=== PATIENT | male | born 1960 | race Caucasian/White ===

== ENCOUNTER → 2016-11-25 | Outpatient (REF) | payer BC ==
[2016-11-25 11:39] LABS: MEAN CORPUSCULAR HEMOGLOBIN 29.6 pg (27.0-33.0); MEAN CORPUSCULAR VOLUME 89.8 fl (80.0-96.0); RED CELL DISTRIBUTION WIDTH 12.2 % (11.5-14.5); WHITE BLOOD COUNT 6.2 K/mm3 (4.0-10.0)
[2016-11-25 12:11] LABS: ALBUMIN 3.7 GM/DL (3.2-5.2); ALBUMIN/GLOBULIN RATIO 1.16 (1.00-1.93); ALKALINE PHOSPHATASE 82 U/L (45-117); ALT/SGPT 24 U/L (12-78); ANION GAP 8 MEQ/L (8-16); AST/SGOT 12 U/L (15-37); BILIRUBIN,TOTAL 0.4 MG/DL (0.2-1.0); BLOOD UREA NITROGEN 27 MG/DL (7-18); CALCIUM LEVEL 8.9 MG/DL (8.5-10.1); CARBON DIOXIDE LEVEL 27 MEQ/L (21-32); CHLORIDE LEVEL 108 MEQ/L (98-107); CHOLESTEROL LEVEL 235 MG/DL (<200); CREATININE FOR GFR 1.07 MG/DL (0.70-1.30); GLOMERULAR FILTRATION RATE > 60.0 (>56); GLUCOSE, FASTING 93 MG/DL (70-105); POTASSIUM SERUM 4.7 MEQ/L (3.5-5.1); SODIUM LEVEL 143 MEQ/L (136-145); TOTAL PROTEIN 6.9 GM/DL (6.4-8.2); TRIGLYCERIDES LEVEL 160 MG/DL (<150)
== END ==
LOC: M SFHCCLAY 07:18
PROVIDERS: ATTEND Nurse Practitioner
DX: Z00.00 Encounter for general adult medical examination without abnormal findings (principal); E78.5 Hyperlipidemia, unspecified; N40.0 Benign prostatic hyperplasia without lower urinary tract symptoms; E03.9 Hypothyroidism, unspecified

== ENCOUNTER 2017-05-01 07:20 | Outpatient (CLI) | payer BC, OTHER ==
[~2017-05-01] VITALS: Ht 182.9 cm; Wt 120.2 kg
[~2017-05-01 07:20] MED LIST: FLOM5CAP PO; LIDOCAINE 2% INJ 100 MG/5 ML SDV (FOR ANES.) As Ordered ONE; NS 1,000 ML IV SCH; PRAV20TA2 PO; PROPOFOL 200 MG/20 ML VIAL As Ordered ONE
--- NOTE | 2017-05-01 08:30 | ROOR ---
Patient Name: Krish Mittal Procedure Date: 05/01/2017 7:57 AM Date of : 1960 Age: 56 Room: [facility] Gender: Male Note Status: Finalized Procedure: Total Colonoscopy to Cecum + Cold Snare Polypectomy + Biopsy Polypectomy Indications: Colon cancer screening in patient at increased risk: Colorectal cancer in brother Providers: Minh Melendez MD Referring MD: PRISCILA SILVA NP Requesting Provider: Medicines: Monitored Anesthesia Care Complications: No immediate complications. Procedure: Pre-Anesthesia Assessment: - The heart rate, respiratory rate, oxygen saturations, blood pressure, adequacy of pulmonary ventilation, and response to care were monitored throughout the procedure. The Colonoscope was introduced through the anus and advanced to the cecum, identified by appendiceal orifice and ileocecal valve. The colonoscopy was performed without difficulty. The patient tolerated the procedure well. The quality of the bowel preparation was good. Findings: The perianal and digital rectal examinations were normal. Non-bleeding internal hemorrhoids were found during retroflexion. The hemorrhoids were small and Grade I (internal hemorrhoids that do not prolapse). A small polyp was found at 25 cm proximal to the anus. The polyp was sessile. The polyp was removed with a cold snare. Resection and retrieval were complete. A small polyp was found in the cecum. The polyp was carpet-like. The polyp was removed with a cold biopsy forceps. Resection and retrieval were complete. A small polyp was found in the hepatic flexure. The polyp was sessile. The polyp was removed with a jumbo cold forceps. Resection and retrieval were complete. The exam was otherwise without abnormality on direct and retroflexion views. Impression: - Non-bleeding internal hemorrhoids. - One small polyp at 25 cm proximal to the anus, removed with a cold snare. Resected and retrieved. - One small polyp in the cecum, removed with a cold biopsy forceps. Resected and retrieved. - One small polyp at the hepatic flexure, removed with a jumbo cold forceps. Resected and retrieved. - The examination was otherwise normal on direct and retroflexion views. - The exam was otherwise normal to the cecum. Recommendation: - Patient has a contact number available for emergencies. The signs and symptoms of potential delayed complications were discussed with the patient. Return to normal activities tomorrow. Written discharge instructions were provided to the patient. - High fiber diet. - Discharge patient to home. - Continue present medications. - Await pathology results. - Telephone GI clinic for pathology results in 1 week. - Repeat colonoscopy for surveillance based on pathology results. - Return to referring physician. - Check Portal Online for Path Results.([email or web address] - The findings and recommendations were discussed with the patient's family. Minh Melendez MD Minh Melendez MD 05/01/2017 8:30:00 AM This report has been signed electronically. Number of Addenda: 0 Note Initiated On: 05/01/2017 7:57 AM Estimated Blood Loss: Estimated blood loss: none.
[2017-05-01 09:04] VITALS: BP 126/73
== END 2017-05-01 09:20 | disposition home or self-care (01) ==
LOC: M OPP 07:20
PROVIDERS: ATTEND Internal Medicine Gastroenterology
DX: Z12.11 Encounter for screening for malignant neoplasm of colon (principal); Z80.0 Family history of malignant neoplasm of digestive organs; K64.0 First degree hemorrhoids; D12.0 Benign neoplasm of cecum; D12.5 Benign neoplasm of sigmoid colon; D12.3 Benign neoplasm of transverse colon; E78.00 Pure hypercholesterolemia, unspecified; R06.83 Snoring; Z79.899 Other long term (current) drug therapy

== ENCOUNTER → 2017-05-29 | Outpatient (CLI) | payer OTHER ==
[~2017-05-29] MED LIST changes: -LIDOCAINE 2% INJ 100 MG/5 ML SDV (FOR ANES.) As Ordered ONE; -NS 1,000 ML IV SCH; -PROPOFOL 200 MG/20 ML VIAL As Ordered ONE
[2017-05-29 12:19] LABS: BASO # 0.1 K/mm3 (0.0-0.2); BASO % 0.5 % (0.0-1.0); EOS # 0.2 K/mm3 (0.0-0.50); LARGE UNSTAINED CELL # 0.2 K/mm3 (0.0-0.4); LARGE UNSTAINED CELL % 1.5 % (0.0-4.0); LYMPH # 2.1 K/mm3 (1.5-4.5); LYMPH % 15.7 % (24.0-44.0); MEAN CORPUSCULAR HEMOGLOBIN 30.2 pg (27.0-33.0); MEAN CORPUSCULAR HGB CONC 33.4 g/dl (32.0-36.5); MEAN CORPUSCULAR VOLUME 90.2 fl (80.0-96.0); NEUTROPHILS # 8.9 K/mm3 (1.8-7.7); NEUTROPHILS % 72.3 % (36.0-66.0); PLATELET COUNT, AUTOMATED 354 k/mm3 (150-450); RED CELL DISTRIBUTION WIDTH 12.5 % (11.5-14.5); WHITE BLOOD COUNT 12.3 K/mm3 (4.0-10.0)
== END ==
LOC: M WUC 10:39
PROVIDERS: ATTEND Physician Assistant
DX: K57.20 Diverticulitis of large intestine with perforation and abscess without bleeding (principal)

== ENCOUNTER 2017-09-07 11:53 | Observation (INO) | payer OTHER ==
[~2017-09-07] VITALS: Ht 185.4 cm; Wt 117.9 kg
--- NOTE | 2017-09-07 13:30 | REP ---
CT brain without contrast: History: Altered mental status. No comparison CT study. Findings: Bone window settings demonstrate vascular calcification in the distal carotid arteries. The bony calvarium is intact. There is mild mucosal thickening affecting the sphenoid and ethmoid air cells bilaterally. On soft tissue window settings, the lateral, third, and fourth ventricles are normal in size and position. Montoya-white differentiation pattern is normal above and below the tentorium. There is no evidence of intracranial hemorrhage. No extra-axial fluid collection is seen. No mass or midline shift is observed. Impression: Vascular calcification. Mucosal thickening in the sphenoid and ethmoid sinuses bilaterally. Otherwise negative noncontrast head CT. No acute intracranial lesion. Signed by Zackary Ayers MD 09/07/2017 02:24 P
[2017-09-07 14:01] LABS: BASO # 0.1 10^3/uL (0.0-0.2); BASO % 0.6 % (0.0-1.0); EOS # 0.2 10^3/uL (0.0-0.50); EOS % 1.8 % (0.0-3.0); IMMATURE GRANULOCYTE % 0.4 % (0-0); LYMPH % 18.5 % (24.0-44.0); MEAN CORPUSCULAR HEMOGLOBIN 29.4 pg (27.0-33.0); MEAN CORPUSCULAR HGB CONC 32.9 g/dl (32.0-36.5); MEAN CORPUSCULAR VOLUME 89.1 fl (80.0-96.0); MONO # 0.9 10^3/uL (0.0-0.8); MONO % 8.4 % (0.0-5.0); NEUTROPHILS # 7.4 10^3/uL (1.8-7.7); NEUTROPHILS % 70.3 % (36.0-66.0); PLATELET COUNT, AUTOMATED 370 10^3/uL (150-450); RED CELL DISTRIBUTION WIDTH 12.9 % (11.5-14.5); WHITE BLOOD COUNT 10.5 10^3/uL (4.0-10.0)
[2017-09-07 14:13] LABS: OSMOLALITY SERUM 296 MOSM/KG (275-295)
[2017-09-07 14:19] LABS: METHADONE URINE NEGATIVE (NEGATIVE)
[2017-09-07 14:25] LABS: ALBUMIN 3.8 GM/DL (3.2-5.2); ALBUMIN/GLOBULIN RATIO 0.88 (1.00-1.93); ALKALINE PHOSPHATASE 99 U/L (45-117); ALT/SGPT 20 U/L (12-78); ANION GAP 7 MEQ/L (8-16); AST/SGOT 10 U/L (7-37); BILIRUBIN,DIRECT < 0.1 MG/DL (0.0-0.2); BILIRUBIN,TOTAL 0.2 MG/DL (0.2-1.0); BLOOD UREA NITROGEN 21 MG/DL (7-18); CALCIUM LEVEL 9.1 MG/DL (8.5-10.1); CARBON DIOXIDE LEVEL 28 MEQ/L (21-32); CHLORIDE LEVEL 105 MEQ/L (98-107); CREATININE FOR GFR 1.12 MG/DL (0.70-1.30); GLOMERULAR FILTRATION RATE > 60.0 (>56); GLUCOSE, FASTING 95 MG/DL (70-105); POTASSIUM SERUM 4.4 MEQ/L (3.5-5.1); SODIUM LEVEL 140 MEQ/L (136-145); TOTAL PROTEIN 8.1 GM/DL (6.4-8.2)
[2017-09-07] MEDS ORDERED: ONDANSETRON 4MG/2ML VIAL (J2405) IV PRN (18:45)
[2017-09-07] MEDS ORDERED: BISACODYL 5 MG TAB PO PRN (18:45)
[2017-09-07] MEDS ORDERED: ACETAMINOPHEN TAB 650MG DOSE (2X325MG) PO PRN (18:45)
--- NOTE | 2017-09-07 19:00 | REPUSA ---
HISTORY: ALTERED MENTAL STATUS. Confusion. TECHNIQUE: Multisequence, multiplanar MRI imaging of brain without contrast. FINDINGS: Ventricles and sulci are of normal size for this age group. Montoya-white matter differentiati on is intact. There is no evidence of intracranial mass, mass effect, hemorrhage, infarct, or abnorma l cystic fluid collection seen. Optic chiasm is normal and pituitary gland is normal. Noncontrast dorene earance of the [place] vessels appears normal. Skull base appears normal and no CPA angle ma ss lesions are seen. Orbits and paranasal sinuses appear normal. IMPRESSION: Negative noncontrast MRI of brain.
[2017-09-07] MEDS ORDERED: ZANTTAB PO (19:05)
--- NOTE | 2017-09-07 19:10 | REPUSA ---
HISTORY: ALTERED MENTAL STATUS. Confusion. TECHNIQUE: 3-D [id number] MRA imaging of brain. FINDINGS: The examination demonstrates normal flow and patency of the right and left intracranial int ernal carotid arteries, anterior cerebral arteries, middle cerebral arteries, intracranial vertebral arteries, basilar artery, posterior cerebral arteries, and [place] arteries, with no detecta ble evidence of aneurysm, stenosis, vasculitis, or arterial venous malformation. There is a normal v ariation of a right posterior communicating artery supplying the right posterior cerebral artery. IMPRESSION: Negative MRA of brain as discussed above.
[2017-09-07] MEDS ORDERED: amLODIPine 5 MG TAB PO ONE (19:45)
--- NOTE | 2017-09-07 20:12 | ECGEPIP ---
Stationary ECG Study [facility] - ED Test Date: 2017-09-07 Pat Name: ANNETTE GUTIERREZ Department: Room: - Gender: M [employer] Operator: brandon : 1960 Requested By: Alannah Waite Order Number: [id number] Reading MD: Adonis Slaughter Measurements Intervals [place] Rate: 75 P: 27 SC: 175 QRS: -14 QRSD: 101 T: 16 QT: 389 QTc: 435 Interpretive Statements SINUS RHYTHM NSTTW ABNORMALITIES SIMILAR TO 09/11/16 Electronically Signed On 09-07-2017 20:12:31 EST by Adonis Slaughter
--- NOTE | 2017-09-07 20:13 | HPE ---
DATE OF ADMISSION: 09/07/2017 Patient had previously been seen by Lesley Levy, and he complained of confusion, disorientation. HISTORY OF PRESENT ILLNESS: This is a 57-year-old male with past medical history significant for hypothyroidism, benign prostatic hypertrophy (BPH), hypertension , hyperlipidemia, diverticulosis. Presents to the emergency room with acute onset of confusion, noticed by the at 10 a.m. this morning. Patient mis-sat in a chair and then felt lightheaded. He could not recall who the president was. When the patient's asked him what his blood pressure was, he could not recall that he went to the doctor's office to get his blood pressure checked a few days ago, and he did not remember that he did blood work done at that time. He did not know the president and could answer. Denied any chest pain, pressure, tightness, palpitations. Patient complained of feeling very tired and fatigued and is currently being worked up for obstructive sleep apnea. He has been having occasional headaches in the mornings. He has been very fatigued for the past 2-3 months but denies any fever, c hills, weight gain, weight loss, changes in appetite, nausea, vomiting, diarrhea, abdominal pain, dysuria, urgency, frequency, upper or lower extremity weakness. Patient's did not note any dysarthria. Patient was found to have resolved his symptoms within 2 hours of emergency room (ER) evaluation. Patient's did call Dr. Alejandro's office. They asked whether his face was symmetric, and it was. His tongue was midline. His strength was intact. Glucose level in the ER was 95. Blood work was normal. Systolic pressure when he came in was 160/82. MRI/MRA of the brain are within normal limits. Hospitalist service was asked to admit for transient ischemic attack (TIA). PAST MEDICAL HISTORY: 1. Hypothyroidism. 2. BPH. 3. Hyperlipidemia. 4. Diverticulosis. ALLERGIES: No known drug allergies. PAST SURGICAL HISTORY: Vasectomy. SOCIAL HISTORY: with four children. Works in [employer]. Has his own company. Denies any alcohol, cigarettes, or recreational drug use. FAMILY HISTORY: Father with prostate cancer, pacemaker, diabetes. Mother with cerebrovascular accident (CVA), hypertension. Brother with colon cancer. Sister with three TIAs, diabetes. REVIEW OF SYSTEMS: Per history of present illness (HPI). A 12-point system otherwise negative. LABORATORY DATA: White count 10.5, hemoglobin 14, hematocrit 43, platelet count 370. Neutrophils 80%. Sodium 140, potassium 4.4, chloride 105, bicarbonate 28, BUN 21, creatinine 1.1, glucose 95. Osmolality 296. Calcium 9.1. Total bilirubin 0.2, direct bilirubin less than 0.1. AST 10, ALT 20, alkaline phosphatase 99. Ammonia less than 10. Total CK 92, MB fraction 1, troponin 0.03. Total protein 8.1. TSH 3.5. Urine toxicology screen is negative. MRI of the brain negative. Noncontrast MRI. MRA of the brain: Negative MRA. ASSESSMENT AND PLAN: This is a 57-year-old male with a history of hypertension, hyperlipidemia, nonsmoker, diverticulitis with diverticulosis, benign prostatic hypertrophy (BPH), who presents to the emergency room with acute onset of confusion, disorientation, unable to say who the president was, and did not recall what happened about a week ago. Complained of lightheadedness with normal MRI/MRI, normal EKG, sinus rhythm, ventricular rate of 75. Patient is admitted for transient ischemic attack (TIA) and will be admitted for observation and assigned to Dr. Rony Tran. CURRENT ISSUES: 1. Transient ischemic attack. Patient had confusion and disorientation that lasted 2 hours. Currently on aspirin 81 mg daily. MRI/MRA of the brain are negative. Will admit the patient to telemetry, monitor for 24 hours, then discharge home in the morning. Check fasting lipid profile. 2. Hypertension. Uncontrolled with complaints of headache. Current pressure is 150 and 160 on arrival to the ER. Patient will be given one dose of Norvasc. 3. BPH. Continue on Flomax. 4. Dyslipidemia. Check lipid profile in the morning. Start on statin if LDL is elevated. 5. Deep vein thrombosis (DVT) prophylaxis with subcutaneous Lovenox. DISPOSITION: Patient will be assigned to Dr. Rony Tran at 7 p.m. on 09/07/2017 and may be discharged home in the morning if no issues overnight. [facility]
[2017-09-07] MEDS ORDERED: TAMSULOSIN 0.4 MG CAP PO SCH (21:00)
[2017-09-07] MEDS: raNITIdine SYRUP 150 MG/10 ML UDC PO SCH (21:30)
[2017-09-08 00:43] VITALS: BP 145/79
[2017-09-08 04:13] VITALS: BP 101/58
[2017-09-08 06:54] LABS: BASO # 0.1 10^3/uL (0.0-0.2); BASO % 0.9 % (0.0-1.0); EOS # 0.2 10^3/uL (0.0-0.50); EOS % 3.2 % (0.0-3.0); IMMATURE GRANULOCYTE % 0.1 % (0-0); LYMPH # 2.3 10^3/uL (1.5-4.5); LYMPH % 30.5 % (24.0-44.0); MEAN CORPUSCULAR HEMOGLOBIN 28.8 pg (27.0-33.0); MEAN CORPUSCULAR HGB CONC 32.9 g/dl (32.0-36.5); MEAN CORPUSCULAR VOLUME 87.6 fl (80.0-96.0); MONO # 0.8 10^3/uL (0.0-0.8); MONO % 10.2 % (0.0-5.0); NEUTROPHILS # 4.1 10^3/uL (1.8-7.7); NEUTROPHILS % 55.1 % (36.0-66.0); PLATELET COUNT, AUTOMATED 310 10^3/uL (150-450); WHITE BLOOD COUNT 7.4 10^3/uL (4.0-10.0)
[2017-09-08 07:26] LABS: ANION GAP 8 MEQ/L (8-16); BLOOD UREA NITROGEN 20 MG/DL (7-18); CALCIUM LEVEL 8.8 MG/DL (8.5-10.1); CARBON DIOXIDE LEVEL 25 MEQ/L (21-32); CHLORIDE LEVEL 106 MEQ/L (98-107); CHOLESTEROL LEVEL 211 MG/DL (<200); CREATININE FOR GFR 1.09 MG/DL (0.70-1.30); GLOMERULAR FILTRATION RATE > 60.0 (>56); GLUCOSE, FASTING 100 MG/DL (70-105); POTASSIUM SERUM 4.1 MEQ/L (3.5-5.1); SODIUM LEVEL 139 MEQ/L (136-145); TRIGLYCERIDES LEVEL 170 MG/DL (<150)
[2017-09-08 08:00] VITALS: BP 115/66
[2017-09-08] MEDS ORDERED: ENOXAPARIN 40 MG/0.4 ML SYRINGE (J1650) SC SCH (09:00)
[2017-09-08] MEDS ORDERED: ASPIRIN 81 MG CHEW TABLET PO SCH (09:00)
[2017-09-08] MEDS: raNITIdine SYRUP 150 MG/10 ML UDC PO SCH ×2 (09:00→09:56)
[2017-09-08] MEDS ORDERED: SIMV40TA2 PO (09:49)
[2017-09-08] MEDS ORDERED: ASPI81TA PO (09:49)
--- NOTE | 2017-09-09 15:49 | DSES ---
DATE OF ADMISSION: 09/07/2017 DATE OF DISCHARGE: 09/08/2017 DISCHARGE DIAGNOSIS: Possible transient ischemic attack (TIA). SECONDARY DIAGNOSES: 1. Possible atypical migraines. 2. BPH. 3. Dyslipidemia. 4. Diverticulosis. HOSPITAL COURSE: The patient is a 57-year-old man who presented to the emergency room with an onset of confusion at 10 a.m., he mis-sat in a chair, felt lightheaded, had a little bit of a headache, could not remember who the president was, could not remember being in the doctor's office recently, and as he was confused. His did call Dr. Alejandro's office, who suggested that he present to the emergency room for evaluation. He was mildly hypertensive, which did quickly resolve with medication. He normally only takes Flomax and ranitidine at home. A CT scan was completed of his brain and did not reveal any etiology that was concerning for a TIA and, as such, he did have an MRI and MRA of the brain as well, which did not reveal any concerning findings and no acute CVAs. His symptoms did resolve completely within 2 hours. SUBJECTIVE: This morning, the patient tells me that he feels well and has no complaints and is at his baseline functioning. OBJECTIVE: VITAL SIGNS: Temperature 97.3, pulse 86, respiratory rate 18, blood pressure 115/66, oxygen saturation 100% on room air. GENERAL: He is a pleasant man laying in a stretcher at a 30 degree angle, he does not appear to be in any acute distress. HEENT: Cranial nerves II-XII are grossly intact. He has moist mucous membranes. Face is symmetric. Tongue is midline. CARDIOVASCULAR EXAM: S1, S2, regular. RESPIRATORY EXAM: Clear. ABDOMINAL EXAM: Obese. Bowel sounds are present. The abdomen is soft. EXTREMITIES: No clubbing, cyanosis, or edema. No rash. LABORATORY STUDIES: WBC 7.4, hemoglobin 13.9, platelet count 310. Chemistry panel: Sodium 134, potassium 4.1, chloride 106, bicarbonate 25, BUN 20, creatinine 1.0, hemoglobin A1c of 6.0, TSH within normal limits. LDL is elevated at 142, HDL is low at 35. Urine toxicology is negative. The Lyme screen and titer is pending. IMAGING: As outlined above. ASSESSMENT AND PLAN: This is a 57-year-old male who presented with slight headache and some intermittent confusion with difficulty in coordination that was self-limited and resolved. 1. Possible transient ischemic attack (TIA) versus atypical migraine. The patient's symptoms have completely subsided. He has no further headache. He has been started on a baby aspirin and simvastatin, which are new medications for him. I have recommended that he have an outpatient referral to neurology for further evaluation. We have advised him no driving until followup and that he should followup with his primary care provider (PCP) within 7 days and he should return to the emergency room (ER) if his symptoms worsen or recur. I did discuss starting anti-hypertensive medication with him, however, he tells me that he has a sphygmomanometer at home and he checks his blood pressure daily and he is rarely above 120 and usually in 110s, and he was previously on antihypertensive medication, lisinopril, but became hypotensive with this, and as such, he was hesitant and resistant to starting any new medications. His blood pressure this morning is satisfactory and he is comfortable without any symptoms. 2. BPH. He is on Flomax. 3. Dyslipidemia. He has been started on a statin. 4. Deep vein thrombosis (DVT) prophylaxis. He was on Lovenox while here. 5. Gastroesophageal reflux disease. He is on ranitidine. DISPOSITION: The patient is being discharged home to the care of his family. He is independent of his activities of daily living at his functional baseline. His clinical syndrome has resolved. His activity is no driving until followup. His diet is 2 gram sodium. He is to return to the emergency room (ER) if his symptoms worsen. He is to followup with the Lyme screen with his primary care provider (PCP). MEDICATIONS: At the time of discharge: - aspirin 81 mg daily - simvastatin 40 mg daily - ranitidine 150 mg every evening - Flomax 0.8 mg nightly Greater than 30 minutes spent organizing safe disposition.
[2017-09-10 00:06] LABS: Lyme Disease IgG/IgM Antibodie <0.91 ISR (0.00-0.90); Lyme Disease IgM Ab Quantitati <0.80 index (0.00-0.79)
== END 2017-09-08 11:00 | disposition home or self-care (01) ==
LOC: M ED 11:53 → M ED INP 18:45
PROVIDERS: ADMIT General Practice; ATTEND Internal Medicine
DX: R41.0 Disorientation, unspecified (principal); R42 Dizziness and giddiness; R51 Headache; R03.0 Elevated blood-pressure reading, without diagnosis of hypertension; R53.83 Other fatigue; N40.0 Benign prostatic hyperplasia without lower urinary tract symptoms; E78.5 Hyperlipidemia, unspecified; K57.90 Diverticulosis of intestine, part unspecified, without perforation or abscess without bleeding; K21.9 Gastro-esophageal reflux disease without esophagitis; E03.9 Hypothyroidism, unspecified; Z79.899 Other long term (current) drug therapy; Z79.82 Long term (current) use of aspirin; Z82.3 Family history of stroke
CPT/HCPCS: 36415; 70450; 70544; 70551; 80048; 80061; 80076; 80307; 82140; 82550; 82553; 83036; 83930; 84443; 85025; 86617; 93005; 93041; 94760; 96372; 99285; G0480; J1650

== ENCOUNTER 2017-09-13 17:30 | Inpatient (IN) | payer OTHER ==
[~2017-09-13] VITALS: Ht 185.4 cm; Wt 120.5 kg
[~2017-09-13 17:30] MED LIST changes: +ASPI81TA PO; +SIMV40TA2 PO; +ZANTTAB PO
[2017-09-13] MEDS ORDERED: PERCOCET 5MG/325MG TAB PO ONE (18:30)
[2017-09-13] MEDS ORDERED: MORPHINE 10 MG/ML 1ML VIAL IM ONE (19:45)
--- NOTE | 2017-09-13 21:00 | REPUSA ---
CLINICAL HISTORY: FELL ? ACETABULAR FX TECHNIQUE: Multiple axial CT images were obtained without IV contrast material. MPR coronal and sagit karina sequences are obtained. COMMENTS: Note is made of severely comminuted nondisplaced fracture of the bony acetabulum There is no evidence of additional fracture or dislocation. The femoral head is intact. There are n o lytic or blastic lesions. No soft tissue masses or fluid collections are present. There is no evidence of arthritis. Joint spaces are preserved. IMPRESSION: Severely comminuted nondisplaced fracture of the bony acetabulum Thank you for your kind referral of this patient.
[2017-09-13] MEDS ORDERED: ASPI81CH PO (22:36)
[2017-09-13] MEDS ORDERED: SIMV40TA2 PO (22:36)
[2017-09-13] MEDS ORDERED: NAPR1TAB41 PO (22:36)
[2017-09-14] VITALS (10 sets, daily range): BP systolic 123–172; BP diastolic 73–91
[2017-09-14] MEDS: D5W/LR 1,000 ML IV SCH ×3 (01:54→20:59)
[2017-09-14] MEDS: MORPHINE 2 MG/ML 1ML SYRINGE IV PRN ×2 (01:55→07:55)
[2017-09-14] MEDS ORDERED: PERCOCET 5MG/325MG TAB PO PRN (02:00)
[2017-09-14] MEDS: PERCOCET 5MG/325MG TAB PO PRN ×5 (02:50→22:12)
--- NOTE | 2017-09-14 07:39 | REP ---
REASON: Pain after trauma. FINDINGS: The compartments are symmetric and relatively well maintained. There is no acute fracture or destructive osseous lesion. Signed by Jaron Card DO 09/15/2017 01:52 P
--- NOTE | 2017-09-14 07:40 | REP ---
REASON: Pain after trauma. TWO VIEWS OF THE RIGHT FEMUR: FINDINGS: No acute fracture or destructive osseous lesion. Signed by Jaron Card DO 09/15/2017 01:52 P
--- NOTE | 2017-09-14 07:45 | REP ---
REASON: Pain after trauma. AP pelvis shows a subtle lucency in the right ischium which appears to be extending from the medial most aspect of the posterior acetabulum into the acetabular rim. This is very difficult to evaluate on a plain AP radiograph of the pelvis. Right hip series is recommended. IMPRESSION: Possible right ischial fracture. AP and frog lateral views of the right hip were obtained and show a right ischial fracture involving the base of the superior pubic ramus extending into the posterior acetabular region. The femur is not fractured and there is no hip dislocation. IMPRESSION: Right hemipelvic fracture into and including the posterior acetabulum as described above. Signed by Jaron Card DO 09/15/2017 01:52 P
[2017-09-14] MEDS: MOM 30ML SUSPENSION UDC PO SCH (07:53)
[2017-09-14] MEDS: ENOXAPARIN 40 MG/0.4 ML SYRINGE (J1650) SC SCH (07:54)
[2017-09-14] MEDS: SENOKOT S TAB PO SCH ×2 (10:20→20:51)
[2017-09-14] MEDS: MIRALAX *UNIT DOSE* 17GM PACKET PO SCH (10:20)
--- NOTE | 2017-09-14 14:41 | REP ---
CERVICAL SPINE SERIES: SEVEN VIEWS. HISTORY: Question fracture. FINDINGS: Lateral views done in flexion and extension show limitation of flexion/extension range of motion. No fracture or subluxation is seen. The C7-T1 disc space is not seen on lateral radiographs. Swimmers lateral view does show C7-T1, however. AP, open-mouth odontoid views are unremarkable. Oblique images demonstrate normally aligned facets. There is left-sided uncovertebral spurring mild in degree at the C 5-6 level. Degenerative disc changes are seen at C4-5 and C5-6. IMPRESSION: Straightening and degenerative spondylosis. Limitation of flexion/extension range of motion. No traumatic abnormality is noted. CT scanning is more sensitive for fracture in the cervical spine. Signed by Zackary Ayers MD 09/14/2017 04:00 P
--- NOTE | 2017-09-14 14:42 | REP ---
THORACIC SPINE SERIES: FOUR VIEWS. HISTORY: Question fracture. FINDINGS: Thoracic vertebral body heights are preserved. Alignment is normal. There is discogenic spurring at several mid and lower thoracic levels. Pedicles and posterior elements are intact. No paravertebral soft-tissue mass or hematoma is seen. There is a minimal levoconvex curve in the upper thoracic spine. IMPRESSION: Degenerative disc changes and mild levoconvex curvature. No fracture or other traumatic abnormality seen. Signed by Zackary Ayers MD 09/14/2017 04:01 P
--- NOTE | 2017-09-14 14:42 | REP ---
LUMBAR SPINE SERIES: FIVE VIEWS. HISTORY: Question fracture. COMPARISON STUDY: April 06, 2007 FINDINGS: Lumbar vertebral body heights are maintained. No fracture or collapse is seen. No malalignment noted. Minimal discogenic spurring is seen at C3-4. Pedicles and posterior elements are intact. Psoas margins are symmetric. Sacrum and SI joints are unremarkable. IMPRESSION: No traumatic abnormality noted. Mild degenerative disc changes at L3-4. Signed by Zackary Ayers MD 09/14/2017 04:00 P
[2017-09-15] MEDS: MORPHINE 2 MG/ML 1ML SYRINGE IV PRN (03:31)
[2017-09-15] MEDS: PERCOCET 5MG/325MG TAB PO PRN ×5 (04:01→22:01)
[2017-09-15 06:00] VITALS: BP 129/78
[2017-09-15] MEDS: MOM 30ML SUSPENSION UDC PO SCH (09:01)
[2017-09-15] MEDS: MIRALAX *UNIT DOSE* 17GM PACKET PO SCH (09:01)
[2017-09-15] MEDS: ENOXAPARIN 40 MG/0.4 ML SYRINGE (J1650) SC SCH (09:02)
[2017-09-15] MEDS: SENOKOT S TAB PO SCH ×2 (09:02→22:01)
[2017-09-15 14:00] VITALS: BP 164/75
[2017-09-15 22:00] VITALS: BP 129/73
[2017-09-16 06:00] VITALS: BP 132/74
[2017-09-16] MEDS ORDERED: PERC5TAB12 PO (07:13)
[2017-09-16] MEDS: MOM 30ML SUSPENSION UDC PO SCH (08:08)
[2017-09-16] MEDS: SENOKOT S TAB PO SCH (08:09)
[2017-09-16] MEDS: MIRALAX *UNIT DOSE* 17GM PACKET PO SCH (08:09)
[2017-09-16] MEDS: ENOXAPARIN 40 MG/0.4 ML SYRINGE (J1650) SC SCH (08:09)
[2017-09-16] MEDS: PERCOCET 5MG/325MG TAB PO PRN (08:10)
[2017-09-16] MEDS ORDERED: traMADol 50 MG TAB PO PRN ×2 (11:45)
[2017-09-16 14:00] VITALS: BP 135/82
--- NOTE | 2017-09-17 13:21 | CR ---
DATE OF CONSULTATION: 09/15/2017 CHIEF COMPLAINT: Right hip pain. HISTORY OF PRESENT ILLNESS: He injured himself on 09/14/2017. He was on a piece of equipment, up about 5 feet. He was moving a component of the equipment that weighed approximately 100 pounds. He slipped, and he landed on his side, and the 100-pound piece of equipment went with him. He had significant pain in the right hip and was not able to effectively ambulate, but he did manage to get to his car and transport himself. 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 He is not complaining of numbness or tingling. He did complain of some back pain. Complains of pain in the groin. Complains of pain with any type of weightbearing activities. Pain is little when he is not really moving around and laying in bed. IMAGING: Included a CT scan, which reflects a nondisplaced but intraarticular comminuted acetabular fracture. CT scan was reviewed. I agree there appears to be no significant displacement. I do not appreciate any widening at the SI joint. The patient has no known allergies. MEDICAL HISTORY: Does have a history of possible transient ischemia attack and has been talking to his primary provider about working that up. He has a history reflux issues, hypercholesterolemia, and urinary retention on Flomax. The medications at home include Flomax, ranitidine, aspirin 81 mg, simvastatin, Naprosyn. The primary provider is Dr. Martínez Alejandro. CLINICAL EXAMINATION: Alert and cooperative. Mood and affect appropriate. He does not appear to be comfortable. There is no abdominal distention. Extremities: Movement of the right lower extremity produced discomfort around the groin and buttock region of the right side. Neurologically intact. No effusion at the knees. No open wounds. Cardiac: Regular at about 80 beats per minute. Again, the patient was conversant and not in distress. IMPRESSION: Comminuted right acetabular fracture. No displacement. RECOMMENDATIONS: Admission for pain control and mobilization. Discharge planning. Home safety evaluation. Physical therapy. For further details, please refer to the medical record.
--- NOTE | 2017-09-19 10:44 | DSES ---
DATE OF ADMISSION: 09/12/2017 DATE OF DISCHARGE: 09/15/2017 HISTORY OF PRESENT ILLNESS: This is a male who injured himself on 09/14/2017 falling from a piece of equipment at height of 5 feet. He sustained a nondisplaced or angulated intra-articular right acetabular fracture. He was consulted by orthopedic surgeon, Dr. Alvaro Hillman. He was admitted for pain control and mobilization, and once this was achieved, then recommended discharge planning, home safety evaluation and progression to formal physiotherapy. Our hospital team felt comfortable discharging the patient on 09/16/2017 with the above recommendations for pain control, mobilization which is protected, home safety evaluation and formal physiotherapy. The patient will followup in our office for a recheck with radiographic surveillance in 7-10 days' time, and is encouraged to contact our office with any difficulty sooner. DISCHARGE DIAGNOSIS:
== END 2017-09-16 16:20 | disposition home or self-care (01) | DRG 341 ==
LOC: M ED 17:30 → M ED INP 22:10 → M MS5PR 09-14 01:00
PROVIDERS: ADMIT Orthopaedic Surgery; ATTEND Orthopaedic Surgery
DX: S32.444A Nondisplaced fracture of posterior column [ilioischial] of right acetabulum, initial encounter for closed fracture (principal); E78.00 Pure hypercholesterolemia, unspecified; W20.8XXA Other cause of strike by thrown, projected or falling object, initial encounter; Y92.69 Other specified industrial and construction area as the place of occurrence of the external cause; Y99.9 Unspecified external cause status; Z86.73 Personal history of transient ischemic attack (TIA), and cerebral infarction without residual deficits; K21.9 Gastro-esophageal reflux disease without esophagitis; R33.9 Retention of urine, unspecified; Z79.82 Long term (current) use of aspirin; Z79.899 Other long term (current) drug therapy

== ENCOUNTER → 2017-10-11 | Outpatient (REF) | payer OTHER ==
[2017-10-11 14:33] LABS: RHEUMATOID FACTOR QUANT < 10.0 IU/ML (0-15.0)
[2017-10-11 14:44] LABS: ERYTHROCYTE SEDIMENTATION RATE 12 mm/hr (0-20)
[2017-10-16 14:11] LABS: ANCA-ATYPICAL <1:20 titer (Neg:<1:20); ANTI THROMBIN 3 FUNCT ACTIVITY 112 % (75-135); ANTINUCLEAR ANTIBODIES DIRECT Negative (Negative); CARDIOLIPIN IGA ANTIBODY <9 APL U/mL (0-11); CARDIOLIPIN IGG ANTIBODY <9 GPL U/mL (0-14); CARDIOLIPIN IGM ANTIBODY <9 MPL U/mL (0-12); CYTOPLASMIC NEUTROP AB ANCA-C <1:20 titer (Neg:<1:20); PERINUCLEAR AB ANCA-P <1:20 titer (Neg:<1:20); PROTEIN C FUNCTIONAL ACTIVITY 152 % (73-180); PROTEIN S FUNCTIONAL ACTIVITY 133 % (63-140)
== END ==
LOC: M LABNEURO 09:17
DX: G45.9 Transient cerebral ischemic attack, unspecified (principal)
CPT/HCPCS: 86147

== ENCOUNTER → 2017-10-12 | Outpatient (CLI) | payer OTHER | LOC: M RAD 12:16 | DX: Z86.73 Personal history of transient ischemic attack (TIA), and cerebral infarction without residual deficits (principal) | CPT/HCPCS: 93880 ==

== ENCOUNTER → 2020-11-21 | Outpatient (CLI) | payer OTHER ==
[~2020-11-21] MED LIST changes: +ASPI81CH32 PO; +ASPI81CH49 PO; -ASPI81TA PO; +FLOM0.4C39 PO; -FLOM5CAP PO; +NAPR1TAB41 PO; +PERC5TAB12 PO; -SIMV40TA2 PO; +SIMV40TA20 PO; +ZANT150T40 PO; -ZANTTAB PO
--- NOTE | 2020-11-23 13:32 | SLEEPCENT ---
NOCTURNAL POLYSOMNOGRAPHY DATE: 11/21/2020 ORDERED BY: KEANU Garcia Nocturnal polysomnography was performed for evaluation of sleep physiology. 8 hours and 30 minutes of data were reviewed. There were 369.5 minutes of sleep identified. Sleep latency was normal at 13.5 minutes. REM latency was normal at 88 minutes. Sleep architecture showed fragmentation. Overall sleep efficiency was good at 73%. There were four to five REM cycles. EKG showed a sinus rhythm with an average heart rate of 56 beats per minute. EEG showed normal waveforms for wake and sleep. There were 282 respiratory events identified of 10 seconds in duration or greater for an apnea-hypopnea index of 45.8. The events were primarily obstructive, not exclusive to sleep stage nor body posture. Arousals from respiratory events occurred 13.3 times per hour, and oxygen desaturations below 90% were seen. There was some minor activity in the limb EMG leads. Arousals from limb events were few. IMPRESSION: Severe obstructive sleep apnea syndrome (G47.33), apnea-hypopnea index 45.8. RECOMMENDATION: The patient should be encouraged to return to the [facility] for pressure therapy. In the interim, alcohol and sedative avoidance should be practiced and caution exercised during the operation of motor vehicles.
== END ==
LOC: M SLEEP 20:00
PROVIDERS: ATTEND Nurse Practitioner Family
DX: G47.33 Obstructive sleep apnea (adult) (pediatric) (principal)

== ENCOUNTER → 2021-02-04 | Outpatient (CLI) | payer OTHER ==
[~2021-02-04] MED LIST changes: +ATOR1TAB19 PO
== END ==
LOC: M LABSMTC 11:25
PROVIDERS: ATTEND Anesthesiology
DX: Z01.818 Encounter for other preprocedural examination (principal); Z20.822 Contact with and (suspected) exposure to COVID-19

== ENCOUNTER 2021-02-08 08:32 | Day surgery (SDC) | payer OTHER ==
[~2021-02-08] VITALS: Ht 182.9 cm; Wt 113.4 kg
[~2021-02-08 08:32] MED LIST changes: +NS 1,000 ML IV ONE
[2021-02-08] MEDS ORDERED: propofoL 200 MG/20 ML VIAL As Ordered ONE (09:19)
--- NOTE | 2021-02-08 09:37 | ROOR ---
Patient Name: Krish Mittal Procedure Date: 02/08/2021 9:12 AM Date of : 1960 Age: 60 Room: [facility] Gender: Male Note Status: Finalized Procedure: Total Colonoscopy to Cecum Indications: Colon cancer screening in patient at increased risk: Colorectal cancer in brother, High risk colon cancer surveillance: Personal history of colonic polyps, Last colonoscopy: 2016 Providers: Minh Melendez MD Referring MD: Martínez Alejandro MD Requesting Provider: Medicines: Monitored Anesthesia Care Complications: No immediate complications. Procedure: Pre-Anesthesia Assessment: - The heart rate, respiratory rate, oxygen saturations, blood pressure, adequacy of pulmonary ventilation, and response to care were monitored throughout the procedure. The Colonoscope was introduced through the anus and advanced to the cecum, identified by appendiceal orifice and ileocecal valve. The colonoscopy was performed without difficulty. The patient tolerated the procedure well. The quality of the bowel preparation was excellent. Findings: The perianal and digital rectal examinations were normal. Non-bleeding internal hemorrhoids were found during retroflexion. The hemorrhoids were small and Grade I (internal hemorrhoids that do not prolapse). No other significant abnormalities were identified in a careful examination of the remainder of the colon. The exam was otherwise without abnormality on direct and retroflexion views. Impression: - Non-bleeding internal hemorrhoids. - The examination was otherwise normal on direct and retroflexion views. - No specimens collected. - The exam was otherwise normal to the cecum. Recommendation: - Patient has a contact number available for emergencies. The signs and symptoms of potential delayed complications were discussed with the patient. Return to normal activities tomorrow. Written discharge instructions were provided to the patient. - High fiber diet. - Discharge patient to home. - Continue present medications. - Repeat colonoscopy in 5 years for screening purposes. - Return to referring physician. - The findings and recommendations were discussed with the patient's family. Procedure Code(s): --- Professional --- G0105, Colorectal cancer screening; colonoscopy on individual at high risk Diagnosis Code(s): --- Professional --- Z80.0, Family history of malignant neoplasm of digestive organs Z86.010, Personal history of colonic polyps K64.0, First degree hemorrhoids CPT copyright 2019 [employer]. All rights reserved. The codes documented in this report are preliminary and upon online marketing strategist review may be revised to meet current compliance requirements. Minh Melendez MD Minh Melendez MD 02/08/2021 9:36:52 AM Electronically signed by Minh Melendez MD Number of Addenda: 0 Note Initiated On: 02/08/2021 9:12 AM Estimated Blood Loss: Estimated blood loss: none.
[2021-02-08 10:25] VITALS: BP 134/78
== END 2021-02-08 10:38 | disposition home or self-care (01) ==
LOC: M OPP 08:32
PROVIDERS: ATTEND Internal Medicine Gastroenterology
DX: Z12.11 Encounter for screening for malignant neoplasm of colon (principal); Z80.0 Family history of malignant neoplasm of digestive organs; Z86.010 Personal history of colon polyps; K64.0 First degree hemorrhoids; E78.5 Hyperlipidemia, unspecified; K21.9 Gastro-esophageal reflux disease without esophagitis; Z79.82 Long term (current) use of aspirin; Z79.899 Other long term (current) drug therapy

== ENCOUNTER → 2021-02-20 | Outpatient (CLI) | payer OTHER ==
[~2021-02-20] MED LIST changes: -NS 1,000 ML IV ONE
--- NOTE | 2021-02-23 16:10 | SLEEPCENT ---
NOCTURNAL POLYSOMNOGRAPHY CPAP TITRATION DATE: 02/20/2021 ORDERED BY: KEANU Garcia Nocturnal polysomnography was performed for the titration of pressure therapy in this patient with obstructive sleep apnea syndrome with apnea-hypopnea index of 45.8. For testing a ResMed AirFit F20 full face mask of large size was used, 4 cm of water pressure were applied to the circuit, and the lights were extinguished. 7 hours and 48 minutes of data were reviewed. There were 384 minutes of sleep identified. Sleep latency was mildly prolonged at 28 minutes. REM latency was normal at 92 minutes. Sleep architecture was fairly good with three to four REM cycles. Overall sleep efficiency was 83.0%. The electrocardiogram showed a sinus rhythm with an average heart rate of 58 beats per minute; rate range 50 to 80. EEG showed normal waveforms for wake and sleep. Respiratory events were fully palliated with CPAP at a pressure of +6. There was significant limb activity persisting and on this occasion, the limb movement arousal index was 5.2. IMPRESSION: Obstructive sleep apnea syndrome (G47.33). RECOMMENDATION: Nightly use of pressure therapy 6 cm of water.
== END ==
LOC: M SLEEP 20:00
PROVIDERS: ATTEND Nurse Practitioner Family
DX: G47.33 Obstructive sleep apnea (adult) (pediatric) (principal)

== ENCOUNTER → 2022-01-10 | Outpatient (REF) | payer OTHER ==
[2022-01-10 12:44] LABS: APPEARANCE, URINE CLEAR (CLEAR); BACTERIA, URINE AUTO NEGATIVE (NEGATIVE); BILIRUBIN, URINE AUTO NEGATIVE (NEGATIVE); BLOOD, URINE BLOOD NEGATIVE (NEGATIVE); COLOR, URINE YELLOW (YELLOW); GLUCOSE, URINE (UA) AUTO NEGATIVE (NEGATIVE); KETONE, URINE AUTO NEGATIVE (NEGATIVE); LEUKOCYTE ESTERASE, URINE AUTO NEGATIVE (NEGATIVE); MUCUS, URINE SMALL (NEGATIVE); NITRITE, URINE AUTO NEGATIVE (NEGATIVE); PROTEIN, URINE AUTO NEGATIVE (NEGATIVE); RBC, URINE AUTO 0 /HPF (0-3); SQUAMOUS EPITHELIAL CELL UR AU 0 /HPF (0-6); UROBILINOGEN, URINE AUTO 0.2 mg/dL (0.0-2.0); WBC, URINE AUTO 0 /HPF (0-3)
== END ==
LOC: M LAB REF 11:47
PROVIDERS: ATTEND Family Medicine
DX: R97.20 Elevated prostate specific antigen [PSA] (principal)

== ENCOUNTER 2022-03-18 09:22 | Observation (INO) | payer OTHER ==
[~2022-03-18] VITALS: Ht 182.9 cm; Wt 111.6 kg
[2022-03-18 10:23] LABS: BASO # 0.1 10^3/uL (0.0-0.2); BASO % 0.7 % (0.0-1.0); EOS # 0.2 10^3/uL (0.0-0.5); EOS % 2.3 % (0.0-3.0); HEMATOCRIT 44.7 % (42.0-52.0); HEMOGLOBIN 14.2 g/dl (13.5-17.5); LYMPH % 24.8 % (24.0-44.0); MEAN CORPUSCULAR HGB CONC 31.8 g/dl (32.0-36.5); MEAN CORPUSCULAR VOLUME 91.2 fl (80.0-96.0); MONO # 0.8 10^3/uL (0.0-0.8); MONO % 9.4 % (2.0-8.0); NEUTROPHILS # 5.1 10^3/uL (1.5-8.5); NEUTROPHILS % 62.6 % (36.0-66.0); PLATELET COUNT, AUTOMATED 312 10^3/uL (150-450); WHITE BLOOD COUNT 8.2 10^3/uL (4.0-10.0)
[2022-03-18 10:34] LABS: INR 0.94
[2022-03-18 10:35] LABS: PARTIAL THROMBOPLASTIN TIME 32.3 SECONDS (25.9-37.0)
[2022-03-18 10:37] LABS: BLOOD UREA NITROGEN 22 MG/DL (7-18); CALCIUM LEVEL 8.8 MG/DL (8.8-10.2); CARBON DIOXIDE LEVEL 29 MEQ/L (21-32); CHLORIDE LEVEL 107 MEQ/L (98-107); CREATININE FOR GFR 1.03 MG/DL (0.70-1.30); GLOMERULAR FILTRATION RATE > 60.0 (>49); GLUCOSE, FASTING 95 MG/DL (70-100); POTASSIUM SERUM 4.7 MEQ/L (3.5-5.1); SODIUM LEVEL 140 MEQ/L (136-145)
[2022-03-18 11:07] LABS: MB/CK RELATIVE INDEX 1.16 (< OR =4)
[2022-03-18] MEDS ORDERED: ASPIRIN 81 MG CHEW TABLET PO ONE (11:15)
[2022-03-18] MEDS ORDERED: NITROGLYCERIN 0.4 MG SUBL TABLET SL PRN ×2 (11:15→15:50)
[2022-03-18] MEDS ORDERED: ISOVUE-370 76% 100ML VIAL As Ordered ONE (11:16)
[2022-03-18 11:54] LABS: CK-MB VALUE MASS < 1.0 NG/ML (<3.6); CPK CREATINE PHOSPHOKINASE 62 U/L (39-308); MB/CK RELATIVE INDEX 1.61 (< OR =4)
[2022-03-18 14:03] LABS: CK-MB VALUE MASS 1.1 NG/ML (<3.6); MB/CK RELATIVE INDEX 1.86 (< OR =4)
[2022-03-18] MEDS ORDERED: MOM 30ML SUSPENSION UDC PO PRN (15:50)
[2022-03-18] MEDS ORDERED: ACETAMINOPHEN TAB 650MG DOSE (2X325MG) PO PRN (15:50)
[2022-03-18 20:30] LABS: RSV AMPLIFICATION NEGATIVE (NEGATIVE)
[2022-03-18] MEDS ORDERED: TAMSULOSIN 0.4 MG CAP PO SCH (21:00)
[2022-03-18] MEDS ORDERED: ATORVASTATIN 20 MG TAB PO SCH (21:00)
[2022-03-18 21:54] VITALS: BP 155/85
[2022-03-19 05:45] VITALS: BP 117/69
[2022-03-19 06:39] LABS: HEMATOCRIT 43.6 % (42.0-52.0); HEMOGLOBIN 14.1 g/dl (13.5-17.5); MEAN CORPUSCULAR HEMOGLOBIN 29.3 pg (27.0-33.0); MEAN CORPUSCULAR HGB CONC 32.3 g/dl (32.0-36.5); MEAN CORPUSCULAR VOLUME 90.5 fl (80.0-96.0); PLATELET COUNT, AUTOMATED 303 10^3/uL (150-450); RED BLOOD COUNT 4.82 10^6/uL (4.30-6.10); WHITE BLOOD COUNT 7.9 10^3/uL (4.0-10.0)
[2022-03-19 07:05] LABS: BLOOD UREA NITROGEN 21 MG/DL (7-18); CALCIUM LEVEL 9.5 MG/DL (8.8-10.2); CARBON DIOXIDE LEVEL 26 MEQ/L (21-32); CHLORIDE LEVEL 110 MEQ/L (98-107); CHOLESTEROL LEVEL 166 MG/DL (<200); CHOLESTEROL RISK RATIO 4.486 (<5); CREATININE FOR GFR 1.12 MG/DL (0.70-1.30); GLOMERULAR FILTRATION RATE > 60.0 (>49); GLUCOSE, FASTING 102 MG/DL (70-100); HDL CHOLESTEROL 37 MG/DL (>40); LDL CHOLESTEROL 106 MG/DL (<100); MAGNESIUM LEVEL 2.4 MG/DL (1.8-2.4); NON-HDL-C 129 MG/DL; POTASSIUM SERUM 4.8 MEQ/L (3.5-5.1); SODIUM LEVEL 140 MEQ/L (136-145); TRIGLYCERIDES LEVEL 113 MG/DL (<150)
[2022-03-19 07:40] LABS: HEMOGLOBIN A1c 5.9 %
[2022-03-19 08:35] VITALS: BP 114/69
[2022-03-19] MEDS ORDERED: ASPIRIN 81 MG CHEW TABLET PO SCH (09:00)
[2022-03-19] MEDS ORDERED: CLOPIDOGREL 75 MG TAB PO SCH (09:00)
[2022-03-19] MEDS ORDERED: METOPROLOL TART 12.5 MG PER 1/2 TAB PO SCH (09:00)
[2022-03-19] MEDS ORDERED: ENOXAPARIN 40MG/0.4ML SYRINGE (J1650 PER 10MG) SC SCH (09:00)
[2022-03-19 10:03] LABS: CK-MB VALUE MASS 1.2 NG/ML (<3.6); MB/CK RELATIVE INDEX 1.33 (< OR =4)
[2022-03-19 10:22] VITALS: BP 133/70
[2022-03-19] MEDS ORDERED: ATOR40TA75 PO (10:22)
[2022-03-19 14:00] VITALS: BP 138/62
[2022-03-19] MEDS ORDERED: ENOXAPARIN 120MG/0.8ML SYRINGE (J1650 PER 10MG) SC SCH (21:00)
== END 2022-03-19 15:21 | disposition short-term general hospital (02) ==
LOC: M ED 09:22 → M ED INP 09:23 → ENRESERV 20:00 → M MSPAV 21:56
PROVIDERS: ADMIT Internal Medicine; ATTEND Internal Medicine
DX: I25.110 Atherosclerotic heart disease of native coronary artery with unstable angina pectoris (principal); I08.0 Rheumatic disorders of both mitral and aortic valves; E03.9 Hypothyroidism, unspecified; I10 Essential (primary) hypertension; N40.0 Benign prostatic hyperplasia without lower urinary tract symptoms; E78.5 Hyperlipidemia, unspecified; R73.03 Prediabetes; K57.90 Diverticulosis of intestine, part unspecified, without perforation or abscess without bleeding; Z86.73 Personal history of transient ischemic attack (TIA), and cerebral infarction without residual deficits; Z79.899 Other long term (current) drug therapy; Z79.82 Long term (current) use of aspirin; Z79.02 Long term (current) use of antithrombotics/antiplatelets; Z87.891 Personal history of nicotine dependence
CPT/HCPCS: 36415; 71045; 71275; 80048; 80061; 82550; 82553; 83036; 83735; 84484; 85025; 85027; 85610; 85730; 87631; 93005; 93041; 93306; 93971; 94760; 96372; 99285; J1650; Q9967

== ENCOUNTER → 2022-05-27 | Outpatient (CLI) | payer OTHER ==
[~2022-05-27] MED LIST changes: +ATOR40TA75 PO
== END ==
LOC: M RAD 07:26
PROVIDERS: ATTEND Physician Assistant Medical
DX: R42 Dizziness and giddiness (principal); H53.9 Unspecified visual disturbance; R06.02 Shortness of breath

== ENCOUNTER → 2022-06-10 | Outpatient (CLI) | payer OTHER | LOC: M PLARAD 10:02 | PROVIDERS: ATTEND Physician Assistant Medical | DX: R42 Dizziness and giddiness (principal); H53.9 Unspecified visual disturbance ==

== ENCOUNTER → 2022-07-15 | Outpatient (REF) | payer OTHER | LOC: M LAB REF 12:16 | PROVIDERS: ATTEND Family Medicine | DX: E07.9 Disorder of thyroid, unspecified (principal) ==

== ENCOUNTER → 2024-03-22 | Outpatient (CLI) | payer OTHER | LOC: M PLAIMG 14:18 | PROVIDERS: ATTEND Family Medicine | DX: I34.0 Nonrheumatic mitral (valve) insufficiency (principal) ==

== ENCOUNTER → 2024-04-29 | Outpatient (CLI) | payer OTHER ==
[~2024-04-29] MED LIST changes: +METHACHOLINE KIT (6 VIAL.NEB PREMIX) INH ONE
== END ==
LOC: M CARPUL 09:49
PROVIDERS: ATTEND Family Medicine
DX: R06.02 Shortness of breath (principal)
CPT/HCPCS: 94070; J7674

== ENCOUNTER → 2024-07-25 | Outpatient (CLI) | payer OTHER ==
[~2024-07-25] MED LIST changes: -METHACHOLINE KIT (6 VIAL.NEB PREMIX) INH ONE
== END ==
LOC: M WUC 11:00
PROVIDERS: ATTEND Family Medicine
DX: R07.81 Pleurodynia (principal)

== ENCOUNTER → 2025-05-02 | Outpatient (CLI) | payer OTHER ==
[~2025-05-02] MED LIST changes: +ASPI-731 PO; -ASPI81CH32 PO; -FLOM0.4C39 PO; -PRAV20TA2 PO; +PRAV20TA78 PO; +TAMS-18 PO
== END ==
LOC: M WUC 08:13
PROVIDERS: ATTEND Urology
DX: R97.20 Elevated prostate specific antigen [PSA] (principal)

== ENCOUNTER → 2025-08-27 | Outpatient (REF) | payer OTHER ==
[2025-08-27 18:54] LABS: BASO # 0.1 10^3/uL (0.0-0.2); BASO % 0.6 % (0.0-1.0); EOS # 0.2 10^3/uL (0.0-0.5); EOS % 2.0 % (0.0-3.0); LYMPH # 1.9 10^3/uL (1.5-5.0); LYMPH % 19.2 % (24.0-44.0); MONO # 0.9 10^3/uL (0.0-0.8); MONO % 9.0 % (2.0-8.0); NEUTROPHILS # 6.8 10^3/uL (1.5-8.5); NEUTROPHILS % 68.9 % (36.0-66.0); PLATELET COUNT, AUTOMATED 328 10^3/uL (150-450)
[2025-08-27 18:56] LABS: ALT/SGPT 19.0 U/L (7.0-40); AST/SGOT 20.0 U/L (<34); CALCIUM LEVEL 9.2 MG/DL (8.3-10.6); CARBON DIOXIDE LEVEL 30.0 MMOL/L (20-31); CHLORIDE LEVEL 104.0 MMOL/L (98-107); CHOLESTEROL LEVEL 132.0 MG/DL (<200); CHOLESTEROL RISK RATIO 3.62 (<5); CREATININE FOR GFR 1.01 MG/DL (0.70-1.30); GLOMERULAR FILTRATION RATE 82.5 (>49); LDL CHOLESTEROL 75.2 MG/DL (<100); NON-HDL-C 95.6 MG/DL; POTASSIUM SERUM 4.8 MMOL/L (3.5-5.1); SODIUM LEVEL 141.0 MMOL/L (136-145); TRIGLYCERIDES LEVEL 102.0 MG/DL (<150)
[2025-08-27 18:58] LABS: FREE T4 1.13 NG/DL (0.89-1.76)
[2025-08-27 18:59] LABS: ESTIMATED AVERAGE GLUCOSE 123.0 MG/DL (60-110)
== END ==
LOC: M LABDRWCV 18:33
PROVIDERS: ATTEND Family Medicine
DX: E78.5 Hyperlipidemia, unspecified (principal); E07.9 Disorder of thyroid, unspecified; R73.09 Other abnormal glucose; R73.01 Impaired fasting glucose